=== PATIENT | female | born 1940 | race Caucasian/White ===

== ENCOUNTER 2022-06-19 12:57 | Outpatient (REF) | payer MEDICARE, SELFPAY ==
[2022-06-19 13:09] VITALS: BMI 25.0
[2022-06-19 13:11] VITALS: BP 142/45; PULSE 66; RESP 16; TEMP 36.9; O2SAT 98
[2022-06-19 13:35] VITALS: BP 149/38; PULSE 57; RESP 16; O2SAT 98
== END 2022-06-19 12:58 | disposition home or self-care (01) ==
LOC: HO.MS 12:57
PROVIDERS: PCP Nurse Practitioner Family; Visit Provider Ophthalmology
PROC: (CPT 67800; principal; 2022-06-19 15:10)
DX: H00.15 Chalazion left lower eyelid (principal); Z83.511 Family history of glaucoma; Z96.1 Presence of intraocular lens; E07.9 Disorder of thyroid, unspecified; M10.9 Gout, unspecified; F03.90 Unspecified dementia, unspecified severity, without behavioral disturbance, psychotic disturbance, mood disturbance, and anxiety; Z79.899 Other long term (current) drug therapy; Z88.2 Allergy status to sulfonamides; Z88.8 Allergy status to other drugs, medicaments and biological substances
CPT/HCPCS: 67800